=== PATIENT | male | born 1935 | race Caucasian/White ===

== ENCOUNTER → 2019-05-02 | Outpatient (CLI) | payer MEDICARE, OTHER ==
[~2019-05-02] MED LIST: B-100 Complex1 EACH PO; Calcium 250+D1 EACH PO; Chromium Pico200 MCG PO; Hytrin2 MG; MELA3 PO; Multiple Vitam1 EAC1 PO; TERA5; Vitamin C1000 M1 PO
== END | disposition home or self-care (01) ==
LOC: LAB SHORT 14:31 → PLD 14:31
DX: D23.72 Other benign neoplasm of skin of left lower limb, including hip (principal)
CPT/HCPCS: 88305; 88342

== ENCOUNTER 2025-03-26 19:34 | Observation (INO) | payer MEDICARE ==
[~2025-03-26] VITALS: Ht 185.4 cm; Wt 77.6 kg
[~2025-03-26 19:34] MED LIST changes: -ELIQUIS2.5 MG PO; -Flomax0.4 MG PO; -MIRALAX17 GM PO; +NS 1,000 ML IV SCH
[2025-03-26 20:51] LABS: BASOPHILS ABSOLUTE AUTO 0.05 K/mm3 (0.00-0.23); BASOPHILS PERCENT AUTO 1 % (0-2); EOSINOPHILS ABSOLUTE AUTO 0.08 K/mm3 (0.00-0.68); EOSINOPHILS PERCENT AUTO 1 % (0-6); Hematocrit 49.9 % (37.0-53.0); Hemoglobin 17.3 g/dL (13.5-17.5); IMMATURE GRAN ABSOLUTE AUTO 0.02 K/mm3 (0.00-0.10); IMMATURE GRAN PERCENT AUTO 0 % (0-1); LYMPHOCYTES ABSOLUTE AUTO 1.23 K/mm3 (0.84-5.20); LYMPHOCYTES PERCENT AUTO 13 % (21-46); MONOCYTES ABSOLUTE AUTO 0.61 K/mm3 (0.16-1.47); MONOCYTES PERCENT AUTO 6 % (4-13); Mean Corpuscular HGB Conc 34.7 g/dL (31.5-36.5); Mean Corpuscular Volume 92 fL (80-100); NEUTROPHILS ABSOLUTE AUTO 7.76 K/mm3 (1.96-9.15); NEUTROPHILS PERCENT AUTO 80 % (41-73); NRBC ABSOLUTE 0.00 K/mm3 (0.00-0.02); NRBC Auto 0.0 /100 WBC (0.0-0.2); Platelet Count 163 K/mm3 (150-400); RDW Coefficient Variation 14.0 % (11.7-14.2); RDW Standard Deviation 47.0 fL (35.1-46.3)
[2025-03-26 21:23] LABS: Alanine Aminotransfer (ALT/SGP 20.0 U/L (12-78); Albumin, Blood 4.4 g/dL (3.4-5.0); Albumin/Globulin Ratio 1.3 (0.8-1.8); Anion Gap 13.0 mmol/L (3-11); Aspartate Aminotrans (AST/SGOT 21.0 U/L (12-37); Bilirubin, Total 2.0 mg/dL (0.1-1.0); Blood Urea Nitrogen 31.0 mg/dL (8-24); CO2, Blood 23.0 mmol/L (21-32); Calcium, Blood 10.3 mg/dL (8.5-10.1); Chloride, Blood 103.0 mmol/L (98-108); Creatinine, Blood 1.37 mg/dL (0.60-1.20); Globulin, Blood 3.5 g/dL (2.2-4.0); Glucose, Blood 145.0 mg/dL (70-99); Potassium, Blood 4.3 mmol/L (3.5-5.5); Sodium, Blood 135.0 mmol/L (136-145); Total Protein, Blood 7.9 g/dL (6.4-8.2)
[2025-03-26] MEDS ORDERED: Ondansetron HCl 2 MG / ML 2ML Vial IV ONE ×2 (21:30→22:50)
[2025-03-26] MEDS ORDERED: HydrALAZINE HCl 20 MG / ML 1ML Vial IV ONE (23:30)
[2025-03-26] MEDS ORDERED: Ondansetron HCl 2 MG / ML 2ML Vial IV PRN (23:40)
[2025-03-26] MEDS ORDERED: Prochlorperazine Edisylate 10 mg Vial IV PRN (23:45)
[2025-03-26] MEDS ORDERED: Morphine Sulfate 10 MG/ML 1MLSYR IV PRN (23:45)
[2025-03-27] VITALS (8 sets, daily range): BP systolic 122–185; BP diastolic 66–99
[2025-03-27] MEDS ORDERED: NS 1,000 ML IV SCH (00:30)
[2025-03-27] MEDS ORDERED: Morphine Sulfate 4 MG/1 ML Injection IV PRN (01:02)
[2025-03-27] MEDS ORDERED: ELIQUIS2.5 MG PO (03:15)
[2025-03-27] MEDS ORDERED: Flomax0.4 MG PO (03:16)
--- NOTE | 2025-03-27 04:50 | NUR ---
SHIFT SUMMARY NOC PT A/O X 4. PLEASANT AND COOPERATIVE WITH CARE. BP ELEVATED. GIVEN HYDRALZINE IN ED, WELL N/V RX. PT ADMIT FOR PARTIAL SBO. PT HAS BEEN NPO SINCE ARRIVAL TO UNIT. HOME RX HAS BEEN RECONCILED, BUT NOT ORDERED BY MD DUE TO NPO STATUS. NS INFUSING @ 100 ML/HR X 2L WITH BAG 1/2 INFUSING. PT HAS SURGICAL CONSULT CALLED IN FOR DR LAWLER FOR THIS MORNING. PT ON TELE AFIB/BBB/PVC'S IN 80'S. RHYTHM STRIP REVIEWED AND AGREE WITH RATE/ RHTYHM. PT ABLE TO AMBULATE TO BATHROOM 1PA FWW. PT CURRENTLY RESTING WITH BED IN LOWEST POSITION, AND CALL LIGHT WITHIN REACH.
[2025-03-27 06:08] LABS: BASOPHILS ABSOLUTE AUTO 0.04 K/mm3 (0.00-0.23); BASOPHILS PERCENT AUTO 0 % (0-2); EOSINOPHILS ABSOLUTE AUTO 0.03 K/mm3 (0.00-0.68); EOSINOPHILS PERCENT AUTO 0 % (0-6); Hematocrit 47.6 % (37.0-53.0); Hemoglobin 16.3 g/dL (13.5-17.5); IMMATURE GRAN ABSOLUTE AUTO 0.01 K/mm3 (0.00-0.10); IMMATURE GRAN PERCENT AUTO 0 % (0-1); LYMPHOCYTES ABSOLUTE AUTO 0.90 K/mm3 (0.84-5.20); LYMPHOCYTES PERCENT AUTO 10 % (21-46); MONOCYTES ABSOLUTE AUTO 0.61 K/mm3 (0.16-1.47); MONOCYTES PERCENT AUTO 7 % (4-13); Mean Corpuscular HGB Conc 34.2 g/dL (31.5-36.5); Mean Corpuscular Volume 92 fL (80-100); NEUTROPHILS ABSOLUTE AUTO 7.41 K/mm3 (1.96-9.15); NEUTROPHILS PERCENT AUTO 82 % (41-73); NRBC ABSOLUTE 0.00 K/mm3 (0.00-0.02); NRBC Auto 0.0 /100 WBC (0.0-0.2); Platelet Count 151 K/mm3 (150-400); RDW Coefficient Variation 13.9 % (11.7-14.2); RDW Standard Deviation 46.7 fL (35.1-46.3)
[2025-03-27 06:20] LABS: Prothrombin Time Results 12.6 Sec (9.7-11.5)
[2025-03-27 06:30] LABS: Alanine Aminotransfer (ALT/SGP 17.0 U/L (12-78); Albumin, Blood 3.8 g/dL (3.4-5.0); Albumin/Globulin Ratio 1.1 (0.8-1.8); Anion Gap 8.0 mmol/L (3-11); Aspartate Aminotrans (AST/SGOT 16.0 U/L (12-37); Bilirubin, Total 1.6 mg/dL (0.1-1.0); Blood Urea Nitrogen 30.0 mg/dL (8-24); CO2, Blood 28.0 mmol/L (21-32); Calcium, Blood 9.6 mg/dL (8.5-10.1); Chloride, Blood 105.0 mmol/L (98-108); Creatinine, Blood 1.33 mg/dL (0.60-1.20); Globulin, Blood 3.4 g/dL (2.2-4.0); Glucose, Blood 137.0 mg/dL (70-99); Potassium, Blood 4.3 mmol/L (3.5-5.5); Sodium, Blood 137.0 mmol/L (136-145); Total Protein, Blood 7.2 g/dL (6.4-8.2)
[2025-03-27] MEDS ORDERED: HydrALAZINE HCl 20 MG / ML 1ML Vial IV PRN (07:40)
[2025-03-27] MEDS ORDERED: Enoxaparin 40 MG/0.4 ML SYR SC SCH (09:00)
--- NOTE | 2025-03-27 17:59 | NUR ---
SHIFT SUMMARY PATIENT A/OX4, ABLE TO MAKE NEEDS KNOWN. PLEASANT AND COOPERATIVE WITH CARE. 1 PERSON ASSIST. IV FLUIDS RUNNING PER SEP. BLOOD PRESSURE ELEVATED THIS MORNING 176/96, NOTIFIED AND NEW ORDER RECIEVED FOR PRN HYDRALAZINE, WHICH WAS EFFECTIVE. PATIENT ADMINISTERED ZOFRAN THIS MORNING FOR NAUSEA, WHICH WAS INEFFECTIVE PATIENT HAD ONE EPISODE OF DARK GREEN EMESIS. COMPAZINE ADMINISTERED PER SEP AND PATIENT WITH NO MORE BOUTS OF EMESIS. PATIENT COMPLAINING OF ABDOMINAL KNOX, PRN MORPHINE ADMINISTERED PER SEP. PATIENT STATES PAIN AND NAUSEA HAVE DECREASED THROUGHOUT THE DAY. CLEAR LIQUID DIET ORDERED EARLIER THIS AFTERNOON BUT PATIENT WAS NOT YET "READY TO EAT" PLAN TO START CLEAR LIQUID DIET AT DINNER THIS EVENING. FAMILY AT BEDSIDE THROUGHOUT MOST OF THE SHIFT AND UPDATED ON PATIENT STATUS. TELEMETRY IN PLACE, A FIB AND A FLUTTER 90s WITH PVCs, NO EVENTS NOTED. NO OTHER CONCERNS AT THIS TIME, WILL CONTINUE TO MONITOR.
[2025-03-28 03:59] VITALS: BP 110/71
--- NOTE | 2025-03-28 05:02 | NUR ---
SHIFT SUMMARY: PT SLEPT THROUGH OUT THE NIGHT. PT UP TO THE BATHROOM 2-3 TIMES AT THE BEGININING OF SHIFT. PT REMINDED TO USE CALL LIGHT ANF BED ALARM SET PT IS UNSTABLE TO GET UP BY THEMSELVES. PT NEEDS 1 P AST. PT IS CURRENTLY ON TELLY AND IN AFIB. PT HAS NO N/V THIS SHIFT. NO ACUTE CHANGES
[2025-03-28 07:59] VITALS: BP 125/69
[2025-03-28] MEDS ORDERED: Polyethylene Glycol 3350 17 gm PO SCH (09:00)
[2025-03-28] MEDS ORDERED: MIRALAX17 GM PO (11:43)
--- NOTE | 2025-03-28 12:03 | NUR ---
DISCHARGE SUMMARY PT DISCHARGED HOME. TELE REMOVED/CLEANED AND SENT BACK TO PCU. PIV REMOVED AND SITE APPEARS WNL. NEW RX FAXED TO [facility] PER PT PREFERENCE. DISCHARGE INSTRUCTION REVIEWED WITH PT AND PT SPOUSE AND DAUGHTER AT BEDSIDE. FOLLOW UP APPOINTMENT WITH PCP MADE FOR 04/03/25. PT WHEELED DOWN TO PRIVATE VEHICLE BY RN AND ABLE TO STAND AND AMBULATE TO CAR INDPEENDENTLY.
== END 2025-03-28 12:05 | disposition home or self-care (01) ==
LOC: ER 19:34 → MEDS 19:35 → ENPENDDIS 03-28 09:40 → MEDS 03-28 12:05
PROVIDERS: Student in an Organized Health Care Education/Training Program; ADMIT Student in an Organized Health Care Education/Training Program
DX: K56.600 Partial intestinal obstruction, unspecified as to cause (principal); I48.91 Unspecified atrial fibrillation; N40.0 Benign prostatic hyperplasia without lower urinary tract symptoms; K57.30 Diverticulosis of large intestine without perforation or abscess without bleeding; K40.90 Unilateral inguinal hernia, without obstruction or gangrene, not specified as recurrent; I12.9 Hypertensive chronic kidney disease with stage 1 through stage 4 chronic kidney disease, or unspecified chronic kidney disease; N18.31 Chronic kidney disease, stage 3a; Z87.891 Personal history of nicotine dependence; Z79.01 Long term (current) use of anticoagulants; Z79.899 Other long term (current) drug therapy; Z88.5 Allergy status to narcotic agent; Z90.49 Acquired absence of other specified parts of digestive tract; Z98.890 Other specified postprocedural states
CPT/HCPCS: 36415; 80053; 83605; 83690; 84484; 85025; 85610; 93005; 93010; 96361; 96372; 96374; 96375; 96376; 99284-25; A9270; G0378; J0360; J0780; J1650; J2270; J2405; J7030

== ENCOUNTER → 2025-03-26 | Outpatient (CLI) | payer MEDICARE ==
[~2025-03-26] MED LIST changes: +ELIQUIS2.5 MG PO; +Flomax0.4 MG PO; +MIRALAX17 GM PO
[2025-03-26 13:33] LABS: BASOPHILS ABSOLUTE AUTO 0.06 K/mm3 (0.00-0.23); BASOPHILS PERCENT AUTO 1 % (0-2); EOSINOPHILS ABSOLUTE AUTO 0.17 K/mm3 (0.00-0.68); EOSINOPHILS PERCENT AUTO 3 % (0-6); Hematocrit 43.7 % (37.0-53.0); Hemoglobin 15.0 g/dL (13.5-17.5); IMMATURE GRAN ABSOLUTE AUTO 0.01 K/mm3 (0.00-0.10); IMMATURE GRAN PERCENT AUTO 0 % (0-1); LYMPHOCYTES ABSOLUTE AUTO 1.10 K/mm3 (0.84-5.20); LYMPHOCYTES PERCENT AUTO 18 % (21-46); MONOCYTES ABSOLUTE AUTO 0.50 K/mm3 (0.16-1.47); MONOCYTES PERCENT AUTO 8 % (4-13); Mean Corpuscular HGB Conc 34.3 g/dL (31.5-36.5); Mean Corpuscular Volume 91 fL (80-100); NEUTROPHILS ABSOLUTE AUTO 4.45 K/mm3 (1.96-9.15); NEUTROPHILS PERCENT AUTO 71 % (41-73); NRBC ABSOLUTE 0.00 K/mm3 (0.00-0.02); NRBC Auto 0.0 /100 WBC (0.0-0.2); Platelet Count 147 K/mm3 (150-400); RDW Coefficient Variation 14.1 % (11.7-14.2); RDW Standard Deviation 46.7 fL (35.1-46.3)
[2025-03-26 13:40] LABS: Alanine Aminotransfer (ALT/SGP 17.0 U/L (12-78); Albumin, Blood 3.8 g/dL (3.4-5.0); Albumin/Globulin Ratio 1.2 (0.8-1.8); Anion Gap 12.0 mmol/L (6-16); Aspartate Aminotrans (AST/SGOT 16.0 U/L (12-37); Bilirubin, Total 1.0 mg/dL (0.1-1.0); Blood Urea Nitrogen 30.0 mg/dL (8-24); CO2, Blood 29.0 mmol/L (21-32); Calcium, Blood 9.5 mg/dL (8.5-10.1); Chloride, Blood 104.0 mmol/L (98-108); Creatinine, Blood 1.56 mg/dL (0.60-1.20); Globulin, Blood 3.2 g/dL (2.2-4.0); Glucose, Blood 114.0 mg/dL (70-99); Potassium, Blood 4.2 mmol/L (3.5-5.5); Sodium, Blood 141.0 mmol/L (136-145); Total Protein, Blood 7.0 g/dL (6.4-8.2)
== END | disposition home or self-care (01) ==
LOC: LAB SHORT 13:26 → LAB 13:26
PROVIDERS: Family Medicine
DX: R10.9 Unspecified abdominal pain (principal)
CPT/HCPCS: 80053; 85025